=== PATIENT | male | born 1960 | race Caucasian/White ===

== ENCOUNTER 2016-06-12 08:19 | Inpatient (IN) ==
[2016-06-12] MEDS ORDERED: *HR* HYDROmorphone (PF) 1 MG/ML SYRINGE IV ONE ×2 (08:51→10:30)
--- NOTE | 2016-06-12 08:57 | Emergency Department Note ---
Disposition Clinical Impression: Multiple fractures of ribs of right side Qualifiers: Encounter type: initial encounter Fracture type: closed Qualified Code(s): S22.41XA - Multiple fractures of ribs, right side, initial encounter for closed fracture Pneumothorax, closed, traumatic Qualifiers: Encounter type: initial encounter Qualified Code(s): S27.0XXA - Traumatic pneumothorax, initial encounter Scaphoid fracture, wrist, closed Qualifiers: Encounter type: initial encounter Scaphoid bone location: unspecified portion of scaphoid Fracture alignment: nondisplaced Laterality: right Qualified Code(s) : S62.001A - Unspecified fracture of navicular [scaphoid] bone of right wrist, initial encounter for closed fracture Abrasion head Qualifiers: Encounter type: initial encounter Qualified Code(s): S00.91XA - Abrasion of unspecified part of head, initial encounter Disposition: Admitted As Inpatient Condition: Fair Referrals: Michael Trinidad MD [Primary Care Provider] - Forms: ED Satisfaction Letter Time of Disposition: 11:22 Fall HPI - General Chief Complaint: ED Fall Stated Complaint: fell off ladder Time Seen by Provider: 06/12/16 08:41 Source: patient, family Mode of arrival: private vehicle Limitations: no limitations Nursing Notes Reviewed: Yes Vital Signs Reviewed: Yes - History of Present Illness Pt Subjective Complaint: fall Onset (ago): hour(s) (A little over an hour ago) Fall From: from height (distance) (The patient was on a 4 foot step ladder and states that he was close to the top when the ladder toppled over) Fall Witnessed: yes Place Fall Occurred: home Loss of Consciousness: none Prolonged Down Time?: no Symptoms Prior to Fall: none Context: other (Step ladder toppled over while he was on it and he fell to the ground. He landed on his right side.) Location of injury: head (Right ear abrasions), chest (Right chest pain) Location of injury - extremities: Right: forearm (Wrist) Severity: severe Quality: sharp Associated symptoms (after fall): Denies: numbness, weakness, shortness of breath, abdominal pain - Related Data Home Medications Medication Instructions Recorded Confirmed Albuterol Sulfate [Albuterol 2 puff IH Q6HR PRN 06/12/16 06/12/16 Inhaler] Carvedilol 12.5 mg PO BID 06/12/16 06/12/16 Ibuprofen [Advil] 200 mg PO Q6H PRN 06/12/16 06/12/16 Allergies Allergy/AdvReac Type Severity Reaction Status Date / Time Oxycodone Allergy Hives Verified 04/10/16 08:40 All systems ED: reviewed and negative except as stated. Eyes: Denies: eye pain, vision change ENT ED: Reports: ear pain (pain to right ear abrasion/contussion) Cardiovascular: Reports: chest pain (Right chest). Denies: palpitations Respiratory: Denies: cough, dyspnea, wheezes Gastrointestinal: Denies: abdominal pain, nausea, vomiting, diarrhea Musculoskeletal: Reports: neck pain (Mild), joint swelling (Right wrist), arthralgia (Right wrist). Denies: back pain Neurological: Denies: weakness, numbness, paresthesias Fall PMH - Past Medical History Medical history: Reports: coronary artery disease, DVT (Patient had been treated with Coumadin but has been off Coumadin for about 2 years), hyperlipidemia, hypertension Surgical history: Reports: coronary bypass (CABG), pacemaker/AICD Psychiatric history: Reports: no psych history - Social History Smoking Status: Current some day smoker Alcohol use: Reports: occasionally Drug use: Reports: none Physical Exam - General Limitations: no limitations General appearance: alert, in distress (Appears uncomfortable) - Head Head exam: other (There is no scalp tenderness or deformity) - Eye Eye exam: Present: normal appearance, PERRL, EOMI - ENT ENT exam: normal oropharynx, mucous membranes moist, TM's normal bilaterally, other (The patient has an abrasion to the top of the right ear. There is no Rodriguez sign. There is no bleeding in the auditory canal. Left ear is normal.) - Neck Neck exam: Present: other (Patient has been placed in a cervical collar. There is mild tenderness diffusely to the posterior neck.) - Chest Chest inspection: Present: symmetric chest wall rise, tenderness (Patient has a lot of tenderness to palpation to the lower ribs on the right hand side, particularly along the anterior axillary line. There is no crepitus or chest wall instability appreciated.) - Respiratory Respiratory exam: Present: normal lung sounds bilaterally. Absent: respiratory distress - Cardiovascular Cardiovascular exam: Present: regular rate, normal rhythm, normal heart sounds - Abdominal Exam Abdominal exam: Present: soft, Non-Tender, normal bowel sounds. Absent: organomegaly - Extremities Exam Extremities exam: Present: other (Patient has swelling and tenderness to the right wrist. Distal neurologic and vascular examination is normal. No other extremity abnormalities are identified.) - Back Exam Back exam: Absent: tenderness - Neurological Exam Neurological exam: Present: alert, oriented X3. Absent: motor sensory deficit - Psychiatric Psychiatric exam: Present: normal affect, normal mood - Skin Skin exam: Present: warm, dry Course Course Narrative: Patient fell from standing a few feet off the ground when he step ladder toppled. He has abrasion to his right ear. There was no loss of consciousness. Mental status and neurologic examination are normal. Patient is not on blood thinners at this time. Neck does show some mild tenderness. I will CT his neck and cervical spine. Chest wall shows significant tenderness to the right side. There are no other clinical indications of intrathoracic pathology. I will CT his thorax while we have him in the scanner for his head and neck. Right wrist will be x-rayed. No other focal complaints made by patient or identified on physical exam. We will give the patient pain medications. Disposition will be based on diagnostic results and reevaluation. - Reevaluation(s) Reevaluation #1: Head and cervical spine CTs are negative. I removed the soft collar. Repeat clinical examination does not make me concerned for missed fracture. The right wrist x-ray does not reveal any obvious bony abnormality, however there is some soft tissue swelling and on clinical examination the patient has tenderness to palpation of the anatomical snuffbox and has significant tenderness on axial loading of the thumb. These are concerning for scaphoid fracture that is not being picked up on x-ray. I will put him in a thumb spica for this reason. CT of the chest is still waiting to be read by the radiologist but it is clear that there is a pneumothorax on the right hand side. I will talk to surgery about that. Time: 10:30 Reevaluation #2: Talked with the patient and family about the diagnosis. They agree to admission. Patient's O2 sat was 98% on room air. I put on 2 L of oxygen nonetheless. Rest of his vital signs are good. Pain is better with pain medicines. Time: 11:18 - Consultations Consultation #1: Dr. Dotson, Gen. surgery - I discussed the case with Dr. Dotson. He reviewed the CT scan while talking to me. He feels that the pneumothorax can be watched [email or web address] He requested admit the patient to the hospitalist service with him on consult. He recommended repeat x-ray in 12 hours. I relayed that information to the hospitalist when I spoke with them. Dr. Dotson will see the patient in consult. Time: 11:16 Consultation #2: Dr. Roberto, hospitalist - I discussed the case with the hospitalist. She has accepted the patient for admission to the hospital. Time: 11:17 Vital Signs Temperature 97.5 F L 06/12/16 08:25 Pulse Rate 82 06/12/16 08:25 Respiratory Rate 16 06/12/16 08:25 Blood Pressure 125/85 06/12/16 08:25 O2 Sat by Pulse Oximetry 97 06/12/16 08:25 Temperature 97.5 F L 06/12/16 08:25 Pulse Rate 79 06/12/16 10:30 Respiratory Rate 16 06/12/16 10:30 Blood Pressure 130/71 06/12/16 10:30 O2 Sat by Pulse Oximetry 100 06/12/16 10:30 Oxygen Delivery Oxygen Delivery Room Air Fall - Medical Records Medical records reviewed: Yes I reviewed the patient's medical records. - Lab Data Lab results reviewed: Yes I reviewed the patient's lab results. Result diagrams: 06/12/16 10:58 Lab Results 06/12/16 06/12/16 Range/Units 10:58 10:58 WBC 11.2 H (4.3-11.1) K/mcL RBC 4.86 (4.19-5.50) M/mcL Hgb 14.9 (12.9-16.9) g/dL Hct 43.2 (37.5-50.1) % MCV 88.9 (83.0-100.0) fL MCH 30.7 (28.0-33.3) pg MCHC 34.5 (31.6-35.5) g/dL RDW 13.0 (11.5-14.5) % Plt Count 162 (140-400) K/mcL MPV 10.4 (9.4-12.4) fL Immature Gran % 0.3 (0-4) % Seg Neutrophils % 87.7 % Lymphocytes % 4.3 % Monocytes % 7.0 % Eosinophils % 0.5 % Basophils % 0.2 % Neutrophils # 9.8 H (1.6-8.9) K/mcL Lymphocytes # 0.5 L (0.6-4.6) K/mcL Monocytes # 0.8 (0.0-1.3) K/mcL Eosinophils # 0.1 (0.0-0.6) K/mcL Basophils # 0.0 (0.0-0.2) K/mcL Immature Plt Fraction 8.1 H (1.1-6.1) % PT 14.8 H (9.4-12.1) Seconds INR 1.4 - Radiology Data Radiology results reviewed: Yes I reviewed the patient's radiology results.
[2016-06-12] MEDS ORDERED: Ketorolac 30 MG/ML VIAL IV ONE (10:30)
[2016-06-12 11:06] LABS: Basophils % 0.2 %; Eosinophils # 0.1 K/mcL (0.0-0.6); Eosinophils % 0.5 %; Hematocrit 43.2 % (37.5-50.1); Hemoglobin 14.9 g/dL (12.9-16.9); Immature Granulocytes % 0.3 % (0-4); Immature Platelets 8.1 % (1.1-6.1); Lymphocytes # 0.5 K/mcL (0.6-4.6); Lymphocytes % 4.3 %; Mean Corpuscular HGB Conc 34.5 g/dL (31.6-35.5); Mean Corpuscular Hemoglobin 30.7 pg (28.0-33.3); Mean Corpuscular Volume 88.9 fL (83.0-100.0); Mean Platelet Volume 10.4 fL (9.4-12.4); Monocytes # 0.8 K/mcL (0.0-1.3); Neutrophils # 9.8 K/mcL (1.6-8.9); Platelet Count 162 K/mcL (140-400); Red Blood Count 4.86 M/mcL (4.19-5.50); Segmented Neutrophils % 87.7 %
[2016-06-12 11:12] LABS: INR 1.4; Prothrombin Time 14.8 Seconds (9.4-12.1)
[2016-06-12 11:17] LABS: BUN/Creatinine Ratio 26 (6-26); Blood Urea Nitrogen 23 mg/dL (8-26); Calcium 9.4 mg/dL (8.6-10.8); Carbon Dioxide 24 mEq/L (19-29); Chloride 107 mEq/L (98-109); Glucose 103 mg/dL (70-99); Osmolality,Calculated 294 (280-300); Potassium 3.8 mEq/L (3.5-4.5); Sodium 140 mEq/L (136-145); eGFR For African Americans > 60 (> 60); eGFR For Non-African Americans > 60 (> 60)
[2016-06-12] MEDS ORDERED: Naloxone 0.4 MG/ML INJ IVP PRN (11:36)
--- NOTE | 2016-06-12 11:48 | Internal Med History&Physical ---
Date of Encounter: 06/12/16 Time of Encounter: 11:43 Assessment and Plan (1) Pneumothorax, closed, traumatic Current visit: Yes Status: Acute Had a small right-sided pneumothorax, clinically stable saturating 97% on 2 L. Secondary to fall with rib fractures. Dr. Dotson has been consulted, recommended conservative management for now. Repeat chest x-ray in 12 hours, will need pain controlled. Qualifiers: Encounter type: initial encounter Qualified Code(s): S27.0XXA - Traumatic pneumothorax, initial encounter (2) H/O mitral valve repair Current visit: Yes Status: Chronic Stable. (3) Multiple fractures of ribs of right side Current visit: Yes Status: Acute Secondary to fall, has fractures on the right side 2nd, 3rd and 5th ribs. Pain management. Qualifiers: Encounter type: initial encounter Fracture type: closed Qualified Code(s) : S22.41XA - Multiple fractures of ribs, right side, initial encounter for closed fracture (4) Scaphoid fracture, wrist, closed Current visit: Yes Status: Acute clinically appeared as scaphoid fracture right side, though x- ray does not show any fracture. thumb spica cast was placed at ED, will consult ortho for f.u. Qualifiers: Encounter type: initial encounter Scaphoid bone location: unspecified portion of scaphoid Fracture alignment: nondisplaced Laterality: right Qualified Code(s): S62.001A - Unspecified fracture of navicular [scaphoid] bone of right wrist, initial encounter for closed fracture (5) Fall Current visit: Yes Status: Acute fell from the ladder today, mechanical fall. Qualifiers: Encounter type: initial encounter Qualified Code(s): W19.XXXA - Unspecified fall, initial encounter (6) Sick sinus syndrome Current visit: Yes Status: Acute History of sick sinus syndrome and has a pacemaker. Currently stable. Internal Medicine - H&P: HPI Chief complaint: fall Admitted From: Home Plans for Post Hospital Care: Home History of present illness: Mr. Perkins is a 56 year old male with hx SSS s/p pacemaker, MV repair 2010, COPD and cephalic vein thrombosis finished AC presented to ED after fall. He says that he was on N and fragment this morning. He denies any preceding chest pain or shortness of breath confusion or dizziness prior to the event. He reports he did not lose consciousness, no head injury after the fall. He sustained abrasion injury on the right ear, pain on the right hand and right side of the chest. He denies any nausea or vomiting. In the ED, he was noted to have right-sided small pneumothorax, Dr. Dotson was consulted and recommended to be treated conservatively. He does not appear to be in any acute respiratory distress, complains of right- sided chest pain where he has tarry fractures in the pneumothorax. However he is seen to be satting 97% on 2 L. HE gives history of mitral valve repair in 2010 and has no symptom from that as he says. He says he was on Coumadin for 1 year for cephalic vein thrombosis, his PCP later told him that he no longer needs it. HE has been applied on thumb spica cast for suspected rt. scaphoid fracture. Past Med Surg Social Fam HX - Past Medical History Medical history: coronary artery disease, DVT (Patient had been treated with Coumadin but has been off Coumadin for about 2 years), hyperlipidemia, hypertension Psychiatric history: no psych history - Past Surgical History Surgical History: coronary bypass (CABG), pacemaker/AICD - Social History Smoking Status: Current some day smoker Smokeless Tobacco Status: No Alcohol use: occasionally Drug use: none - Family History Mother Living Status: Hx Family Genitourinary Disorders: Yes (kidney diease) Hx Family Endocrine Disorder: Yes (dm) Internal Medicine - H&P: Meds Albuterol Sulfate [Albuterol Inhaler] 2 puff IH Q6HR PRN 06/12/16 [History] Carvedilol 12.5 mg PO BID 06/12/16 [History] Ibuprofen [Advil] 200 mg PO Q6H PRN 06/12/16 [History] Allergies Oxycodone Allergy (Verified 04/10/16 08:40) Hives All Systems PM: A 10-system review of systems was performed and is negative for pertinent findings except as documented above in the HPI. - Constitutional Constitutional: no chills, no fever(s), no night sweats - EENT Eyes: no change in vision, no discharge, no pain, no photophobia Ears: no ear discharge, no ear pain, no tinnitus Nose, mouth and throat: no dysphagia, no nasal discharge, no neck pain, no sore throat - Cardiovascular Cardiovascular ROS IM: no chest pain, no diaphoresis, no dyspnea, no lightheadedness, no palpitations, no syncope - Respiratory Respiratory: pain on inspiration - Gastrointestinal Gastrointestinal: no abdominal pain, no diarrhea, no hematemesis, no hematochezia, no melena, no nausea, no vomiting - Neurological Neurological ROS: no confusion, no convulsions, no focal weakness, no numbness, no tingling, no tremor(s) - Constitutional Vitals: Temp Pulse Resp BP Pulse Ox 97.5 F L 79 16 130/71 100 06/12/16 08:25 06/12/16 10:30 06/12/16 10:30 06/12/16 10:30 06/12/16 10:30 General appearance: Present: mild distress, A&O X 3 Exam: - Head Head exam: other (There is no scalp tenderness or deformity) - Eye Eye exam: Present: normal appearance, PERRL, EOMI - ENT ENT exam: normal oropharynx, mucous membranes moist, The patient has an abrasion to the top of the right ear. There is no Rodriguez sign. There is no bleeding in the auditory canal. Left ear is normal. - Neck Neck exam: There is mild tenderness diffusely to the posterior neck - Respiratory Respiratory exam: Present: mildly decreased breath sounds in the right side . Absent: respiratory distress - Cardiovascular Cardiovascular exam: Present: regular rate, normal rhythm, normal heart sounds - Abdominal Exam Abdominal exam: Present: soft, Non-Tender, normal bowel sounds. Absent: organomegaly - Extremities Exam Extremities exam: Present: other (Patient has swelling and tenderness to the right wrist. Distal neurologic and vascular examination is normal. No other extremity abnormalities are identified.) has a thumb spica cast on the right thumb. - Back Exam Back exam: Absent: tenderness - Neurological Exam Neurological exam: Present: alert, oriented X3. Absent: motor sensory deficit - Psychiatric Psychiatric exam: Present: normal affect, normal mood - Skin Skin exam: Present: warm, dry Internal Med - H&P Results - Labs CBC & Chem 7: 06/12/16 10:58 06/12/16 10:58
[2016-06-12] MEDS: *HR* HYDROcodone/Acet 5/325 mg TABLET PO PRN ×2 (13:13→19:57)
--- NOTE | 2016-06-12 15:23 | General Surgery Consult Note ---
Date of Encounter: 06/13/16 Time of Encounter: 15:20 Assessment and Plan (1) Pneumothorax, closed, traumatic Current Visit: Yes Status: Acute Recommend portable CXR in order to obtain a baseline of the lung status in order to compare with a repeat xray in several hours (comparing a CXR to a CT of the chest will show a considerable difference due to the supine position with a CT and a "sitting up" position with a CXR). Will follow with you. Qualifiers: Encounter type: initial encounter Qualified Code(s): S27.0XXA - Traumatic pneumothorax, initial encounter History of Present Illness Consult date: 06/12/16 Reason for consult: other (right pneumothorax) Requesting physician: Sal Mariano History of present illness: 56 year old male with a past medical history significant for presents to the ER after sustaining a fall from a 4 step ladder. He denies any shortness of breath but does admit to right sided chest pain, particularly with movement. He denies any LOC and denies any dizziness. No nausea or vomiting. Past Med Surg Social Fam HX - Past Medical History Medical history: coronary artery disease, DVT, hyperlipidemia, hypertension Psychiatric history: no psych history - Past Surgical History Surgical History: coronary bypass (CABG), pacemaker/AICD - Social History Smoking Status: Current some day smoker Smokeless Tobacco Status: No Alcohol use: occasionally Drug use: none - Family History Mother Living Status: Hx Family Genitourinary Disorders: Yes (kidney diease) Hx Family Endocrine Disorder: Yes (dm) Medications and Allergies Albuterol Sulfate [Albuterol Inhaler] 2 puff IH Q6HR PRN 06/12/16 [History] Carvedilol 12.5 mg PO BID 06/12/16 [History] Ibuprofen [Advil] 200 mg PO Q6H PRN 06/12/16 [History] Allergies Oxycodone Allergy (Verified 04/10/16 08:40) Hives Review of Systems All systems PM: reviewed and no additional remarkable complaints except as stated All systems PM: A 10-system review of systems was performed and is negative for pertinent findings except as documented above in the HPI. General Surgery Exam Initial Vital Signs Temp Pulse Resp BP Pulse Ox 97.5 F L 82 16 125/85 97 06/12/16 08:25 06/12/16 08:25 06/12/16 08:25 06/12/16 08:25 06/12/16 08:25 - General physical appearance well developed, well nourished, no distress - Eyes normal ocular movement - Respiratory other (Noted decreased breath sounds in the right upper lung field. Normal effort.) - Cardiovascular Cardiovascular exam: Present: RRR, no murmurs/rubs/gallops - Abdomen Abdomen general surgery: Present: bowel sounds present, soft, non tender - Musculoskeletal Present: other (No clubbing, cyanosis, or edema.) - Psychiatric Psychiatric general surgery: Present: A&Ox3 Exam Initial Vital Signs Temp Pulse Resp BP Pulse Ox 97.5 F L 82 16 125/85 97 06/12/16 08:25 06/12/16 08:25 06/12/16 08:25 06/12/16 08:25 06/12/16 08:25 Results - Labs 06/13/16 04:23 06/13/16 04:23 Abnormal lab results WBC 11.2 K/mcL (4.3-11.1) H 06/12/16 10:58 Neutrophils # 9.8 K/mcL (1.6-8.9) H 06/12/16 10:58 Lymphocytes # 0.5 K/mcL (0.6-4.6) L 06/12/16 10:58 Immature Plt Fraction 8.1 % (1.1-6.1) H 06/12/16 10:58 PT 14.8 Seconds (9.4-12.1) H 06/12/16 10:58 Glucose 103 mg/dL (70-99) H 06/12/16 10:58 All other labs normal. - Imaging CT scan - chest: report reviewed, image reviewed (Noted small PTX. No contusion noted.) Consult Discharge Plan - Plan Referrals: Michael Trinidad MD [Primary Care Provider] -
[2016-06-12] MEDS: *HR* Morphine 2 MG/ML SYRINGE IVP PRN ×2 (17:19→22:03)
[2016-06-12] MEDS: *HR* Heparin 5,000 UNIT/ML VIAL SQ SCH (17:30)
--- NOTE | 2016-06-12 17:30 | Event Note ---
Date of Encounter: 06/12/16 Time of Encounter: 17:28 Of note: Chest x-ray revealed a medium to large size right-sided pneumothorax that appeared even bigger than suggested by the CT scan. Patient is to place a centesis catheter. After properly to define the patient the patient's right anterior chest was prepped and draped in normal fashion. 1% lidocaine was used to anesthetize the epidermal and dermal layers between the second and third ribs in the midclavicular space. This was followed by making an incision with an 11 blade scalpel and advancement via the Seldinger technique of an 8-Kazakh catheter until air was suctioned in the syringe. The catheter was then advanced and secured in place with a 3-0 silk suture. The tubing was then connected to a Pleur-evac which allow for suctioning of the pneumothorax. Tegaderm was placed over the entry site and the chest x-ray is pending for placement.
--- NOTE | 2016-06-12 21:46 | Event Note ---
Date of Encounter: 06/12/16 Time of Encounter: 21:46 repeat CXR showed worsening pneumothorax, a chest tube has been placed by surgery.
[2016-06-13] MEDS: *HR* HYDROcodone/Acet 5/325 mg TABLET PO PRN ×4 (00:24→22:14)
[2016-06-13] MEDS: *HR* Heparin 5,000 UNIT/ML VIAL SQ SCH ×2 (04:27→16:50)
[2016-06-13 04:53] LABS: Basophils % 0.3 %; Eosinophils # 0.2 K/mcL (0.0-0.6); Eosinophils % 2.8 %; Hematocrit 42.1 % (37.5-50.1); Immature Granulocytes % 0.3 % (0-4); Lymphocytes % 16.3 %; Mean Corpuscular HGB Conc 33.3 g/dL (31.6-35.5); Mean Corpuscular Hemoglobin 30.2 pg (28.0-33.3); Mean Corpuscular Volume 90.7 fL (83.0-100.0); Mean Platelet Volume 11.4 fL (9.4-12.4); Monocytes # 0.7 K/mcL (0.0-1.3); Monocytes % 11.3 %; Neutrophils # 4.1 K/mcL (1.6-8.9); Platelet Count 151 K/mcL (140-400); Red Blood Count 4.64 M/mcL (4.19-5.50); Red Cell Distribution Width 13.2 % (11.5-14.5)
[2016-06-13 05:22] LABS: BUN/Creatinine Ratio 20 (6-26); Blood Urea Nitrogen 20 mg/dL (8-26); Calcium 9.1 mg/dL (8.6-10.8); Carbon Dioxide 25 mEq/L (19-29); Chloride 106 mEq/L (98-109); Chol/HDL Ratio 3.8 (0-4.9); Cholesterol 139 mg/dL (< 200); Glucose 94 mg/dL (70-99); HDL Cholesterol 37 mg/dL (40-59); LDL Cholesterol,Calculated 88 mg/dL (0-99); Osmolality,Calculated 290 (280-300); Potassium 3.8 mEq/L (3.5-4.5); Sodium 139 mEq/L (136-145); Triglycerides 72 mg/dL (< 150); eGFR For African Americans > 60 (> 60); eGFR For Non-African Americans > 60 (> 60)
--- NOTE | 2016-06-13 07:47 | General Surgery Progress Note ---
Date of Encounter: 06/13/16 Time of Encounter: 07:45 - Assessment and Plan (1) Pneumothorax, closed, traumatic Current Visit: Yes Status: Acute CXR showe decreasing pneumothorax. Will clamp CT and repeat CXR in several hours. If stable, then will remove CT. Qualifiers: Encounter type: initial encounter Qualified Code(s): S27.0XXA - Traumatic pneumothorax, initial encounter Subjective Patient reports: no new complaints, other (Still has some right sided chest pain. CXR performed this am.) Objective Vital Signs - Last 8 Hours Temp Pulse Resp BP Pulse Ox 06/13/16 07:00 98.2 F 65 16 105/68 94 06/13/16 04:00 98.5 F 72 16 111/75 93 06/13/16 00:20 98.2 F 77 18 117/75 95 Intake and Output 06/12/16 06/12/16 06/13/16 15:59 23:59 07:59 Intake Total 150 / 150 640 / 640 120 / 120 Output Total 275 / 275 0 / 0 Balance 150 / 150 365 / 365 120 / 120 Intake: Oral 150 / 150 640 / 640 120 / 120 Output: Urine 275 / 275 Chest Tube Drainage 0 / 0 0 / 0 Right Anterior Chest 0 / 0 0 / 0 Other: Meal Lunch Dinner Percent of Meal Consumed 50% # Voids 2 Blood Glucose* 114 114 - General physical appearance well developed, well nourished, no distress - Respiratory normal expansion, normal respiratory effort, other (No evidence of air leak in pleurovac chamber with coughing.) - Labs 06/13/16 04:23 06/13/16 04:23 Diabetes panel 06/13/16 Range/Units 04:23 Sodium 139 (136-145) mEq/L Potassium 3.8 (3.5-4.5) mEq/L Chloride 106 (98-109) mEq/L Carbon Dioxide 25 (19-29) mEq/L BUN 20 (8-26) mg/dL Creatinine 1.00 (0.72-1.25) mg/dL Glucose 94 (70-99) mg/dL Calcium 9.1 (8.6-10.8) mg/dL Triglycerides 72 (< 150) mg/dL HDL Cholesterol 37 L (40-59) mg/dL Calcium panel 06/13/16 Range/Units 04:23 Calcium 9.1 (8.6-10.8) mg/dL Pituitary panel 06/13/16 Range/Units 04:23 Sodium 139 (136-145) mEq/L Potassium 3.8 (3.5-4.5) mEq/L Chloride 106 (98-109) mEq/L Carbon Dioxide 25 (19-29) mEq/L BUN 20 (8-26) mg/dL Creatinine 1.00 (0.72-1.25) mg/dL Glucose 94 (70-99) mg/dL Calcium 9.1 (8.6-10.8) mg/dL Adrenal panel 06/13/16 Range/Units 04:23 Sodium 139 (136-145) mEq/L Potassium 3.8 (3.5-4.5) mEq/L Chloride 106 (98-109) mEq/L Carbon Dioxide 25 (19-29) mEq/L BUN 20 (8-26) mg/dL Creatinine 1.00 (0.72-1.25) mg/dL Glucose 94 (70-99) mg/dL Calcium 9.1 (8.6-10.8) mg/dL Consult Discharge Plan - Plan Referrals: Michael Trinidad MD [Primary Care Provider] -
[2016-06-13] MEDS ORDERED: Loratadine 10 MG TABLET PO PRN (10:38)
[2016-06-13] MEDS: *HR* Morphine 2 MG/ML SYRINGE IVP PRN ×3 (11:10→20:53)
[2016-06-13] MEDS ORDERED: Ipratropium/Albuterol Neb 3 ML IH PRN (11:58)
--- NOTE | 2016-06-13 13:58 | Internal Med Progress Note ---
Date of Encounter: 06/13/16 Time of Encounter: 09:50 - Assessment and plan (1) Acute respiratory failure with hypoxia Current Visit: Yes Status: Acute Assessment and plan: Due to severe right-sided chest wall pain. Chest x-ray shows improvement in the pneumothorax. There is also possible right-sided upper lobe infiltrate. However patient does not exhibit any signs of pneumonia. Will avoid antibiotics for now. No fever and no leukocytosis. If patient develops any fever or leukocytosis and start him on IV antibiotics. High risk for complications. On O2 supplementation. Also on bronchodilator nebs as needed. (2) Pneumothorax, closed, traumatic Current Visit: Yes Status: Acute Assessment and plan: Improved after chest tube placement. Surgery following. Plan for removal of chest tube later today. Qualifiers: Encounter type: initial encounter Qualified Code(s): S27.0XXA - Traumatic pneumothorax, initial encounter (3) Multiple fractures of ribs of right side Current Visit: Yes Status: Acute Assessment and plan: Pain control. Patient placed on morphine IV as needed and Stuart as needed. Qualifiers: Encounter type: initial encounter Fracture type: closed Qualified Code(s) : S22.41XA - Multiple fractures of ribs, right side, initial encounter for closed fracture (4) Scaphoid fracture, wrist, closed Current Visit: Yes Status: Acute Assessment and plan: Thumb spica cast in place. Orthopedics consulted for evaluation. Qualifiers: Encounter type: initial encounter Scaphoid bone location: unspecified portion of scaphoid Fracture alignment: nondisplaced Laterality: right Qualified Code(s): S62.001A - Unspecified fracture of navicular [scaphoid] bone of right wrist, initial encounter for closed fracture (5) H/O mitral valve repair Current Visit: Yes Status: Chronic Assessment and plan: No acute issues at this time. (6) Fall Current Visit: Yes Status: Acute Assessment and plan: Mechanical fall. No further evaluation at this time. Qualifiers: Encounter type: initial encounter Qualified Code(s): W19.XXXA - Unspecified fall, initial encounter (7) Sick sinus syndrome Current Visit: Yes Status: Chronic Assessment and plan: With pacemaker. - Subjective Interval history: Patient having severe chest pain on the right side with right-sided rib fractures and chest tube placement. Worsens with deep breaths and as such patient has been having rapid shallow breaths. He has developed hypoxia and has been saturating in the low 80s on room air and is now on nasal cannula. He does complain of shortness of breath. - Constitutional Vitals: Temp Pulse Resp BP Pulse Ox 98.2 F 77 16 118/76 91 06/13/16 10:26 06/13/16 10:26 06/13/16 12:03 06/13/16 10:26 06/13/16 12:03 General appearance: Present: cooperative, A&O X 3, severe distress, answers questions appropriately Exam: Severe distress - Neck Neck exam general surgery: Present: supple, trachea midline. Absent: lymphadenopathy - Respiratory Respiratory exam: Present: accessory muscle use, chest wall tenderness, rhonchi , tachypnea. Absent: rales, wheezes Additional comments: Rapid shallow breaths due to severe right-sided chest wall pain. - Cardiovascular Cardiovascular exam: Present: RRR, +S1, +S2. Absent: diastolic murmur, gallop, rubs, systolic murmur - GI/Abdominal GI/Abdominal exam: Present: normal bowel sounds, soft, no peritoneal signs. Absent: distended, tenderness - Extremities Exam Extremities exam: Present: warm, radial pulses palpable and symetrical. Absent : calf tenderness, cyanotic, pedal edema Additional comments: Right-sided thumb spica cast placed - Neurological Exam Neurological exam: Present: alert, CN II-XII intact, oriented X3, no focal deficits. Absent: facial droop, speech deficit - Psychiatric Psychiatric exam: Present: anxious - Skin Skin exam: Present: dry, intact Internal Medicine: Result - Labs CBC & Chem 7: 06/13/16 04:23 06/13/16 04:23 Labs: Short CBC 06/13/16 Range/Units 04:23 WBC 6.0 (4.3-11.1) K/mcL Hgb 14.0 (12.9-16.9) g/dL Hct 42.1 (37.5-50.1) % Plt Count 151 (140-400) K/mcL Neutrophils # 4.1 (1.6-8.9) K/mcL BMP 06/13/16 04:23 Sodium 139 Potassium 3.8 Chloride 106 Carbon Dioxide 25 BUN 20 Creatinine 1.00 Glucose 94 Calcium 9.1 - ABG Interpretation ABG results: PT/INR, D-dimer PT 14.8 Seconds (9.4-12.1) H 06/12/16 10:58 - Impressions Impressions Chest X-Ray 06/12/16 15:14 IMPRESSION: Interval worsening of right pneumothorax which now measures up to 5.8 cm from the right apex. Critical results were called by Dr. Jane Mcgarry MD to Dr. Walker on 06/12/2016 at 16:02. D/ / 06/12/2016 16:26:02 Jane Mcgarry MD / edilson Interpreting Provider: Jane Mcgarry MD Chest X-Ray 06/12/16 17:25 IMPRESSION: 1. Right chest tube placement with decrease in size of the right pneumothorax. 2. Otherwise, stable chest x-ray. D/ / Javier Coker MD / Javier Coker MD Interpreting Provider: Javier Coker MD Chest X-Ray 06/13/16 03:56 IMPRESSION: Right chest tube is in stable position. Small right apical pneumothorax is decreased in the interval. Mild left basilar atelectasis. D/ / Leobardo Engle MD / Leobardo Engle MD Interpreting Provider: Leobardo Engle MD Chest X-Ray 06/13/16 11:00 IMPRESSION: Stable right apical pneumothorax following clamping of chest tube. Persistent infiltrate in the axillary portion of the right upper lobe. D/ / Maxime Hawkins MD / Maxime Hawkins MD Interpreting Provider: Maxime Hawkins MD Consult Discharge Plan - Plan Referrals: Michael Trinidad MD [Primary Care Provider] - - Attending Attestation This document has been at least partially created by [employer] recognition technology by Dr. Ascencio. Errors in grammar, wording or other phrases may exist. If errors are found after the documentation is signed, they will be addressed individually in the addendum section of this document when appropriate.
--- NOTE | 2016-06-13 15:02 | General Surgery Progress Note ---
Date of Encounter: 06/13/16 Time of Encounter: 15:00 - Assessment and Plan (1) Pneumothorax, closed, traumatic Current Visit: Yes Status: Acute Chest tube removal Repeat CXR in 4 hours and in am Duonebs every 6 hours scheduled IS every 1 hour while awake Qualifiers: Encounter type: initial encounter Qualified Code(s): S27.0XXA - Traumatic pneumothorax, initial encounter Subjective Patient reports: no new complaints, still having pain, tolerating a regular diet , voiding w/o difficulty, shortness of breath (improved), afebrile Objective Vital Signs - Last 8 Hours Temp Pulse Resp BP Pulse Ox 06/13/16 12:03 16 91 06/13/16 10:26 98.2 F 77 16 118/76 90 Intake and Output 06/12/16 06/13/16 06/13/16 23:59 07:59 15:59 Intake Total 640 / 640 120 / 120 Output Total 275 / 275 0 / 0 350 / 350 Balance 365 / 365 120 / 120 -350 / -350 Intake: Oral 640 / 640 120 / 120 Output: Urine 275 / 275 350 / 350 Chest Tube Drainage 0 / 0 0 / 0 0 / 0 Right Anterior Chest 0 / 0 0 / 0 0 / 0 Other: Meal Dinner Blood Glucose* 114 114 114 - General physical appearance well developed, no distress - Eyes normal ocular movement - ENT normal mucosa, atraumatic, normocephalic - Neck Neck exam: trachea midline - Respiratory clear to auscultation, other (diminished bibasilar bases; Ct to water seal) - Cardiovascular Cardiovascular exam: Present: RRR - Abdomen Abdomen: Present: bowel sounds present, soft, non tender - Neurologic CN 2-12 grossly intact - Psychiatric oriented to time, oriented to person, oriented to place, speech is normal, memory intact - Labs 06/13/16 04:23 06/13/16 04:23 Diabetes panel 06/13/16 Range/Units 04:23 Sodium 139 (136-145) mEq/L Potassium 3.8 (3.5-4.5) mEq/L Chloride 106 (98-109) mEq/L Carbon Dioxide 25 (19-29) mEq/L BUN 20 (8-26) mg/dL Creatinine 1.00 (0.72-1.25) mg/dL Glucose 94 (70-99) mg/dL Calcium 9.1 (8.6-10.8) mg/dL Triglycerides 72 (< 150) mg/dL HDL Cholesterol 37 L (40-59) mg/dL Calcium panel 06/13/16 Range/Units 04:23 Calcium 9.1 (8.6-10.8) mg/dL Pituitary panel 06/13/16 Range/Units 04:23 Sodium 139 (136-145) mEq/L Potassium 3.8 (3.5-4.5) mEq/L Chloride 106 (98-109) mEq/L Carbon Dioxide 25 (19-29) mEq/L BUN 20 (8-26) mg/dL Creatinine 1.00 (0.72-1.25) mg/dL Glucose 94 (70-99) mg/dL Calcium 9.1 (8.6-10.8) mg/dL Adrenal panel 06/13/16 Range/Units 04:23 Sodium 139 (136-145) mEq/L Potassium 3.8 (3.5-4.5) mEq/L Chloride 106 (98-109) mEq/L Carbon Dioxide 25 (19-29) mEq/L BUN 20 (8-26) mg/dL Creatinine 1.00 (0.72-1.25) mg/dL Glucose 94 (70-99) mg/dL Calcium 9.1 (8.6-10.8) mg/dL - Imaging Chest x-ray: report reviewed Additional Studies: Cervical Spine CT 06/12/16 08:50 IMPRESSION: No acute abnormality of the cervical spine. Right pneumothorax. D/ / Jocy Bailey Cha, MD / Jocy Bailey Cha, MD Interpreting Provider: Jocy Bailey Cha, MD Head CT 06/12/16 08:50 IMPRESSION: 1. No acute intracranial abnormality. 2. 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 3. Paranasal sinusitis, as detailed above. D/ / Hung Saavedra MD / Hung Saavedra MD Interpreting Provider: Hung Saavedra MD Chest CT 06/12/16 08:51 IMPRESSION: 1. Small right pneumothorax secondary to fractures of the right 2nd, 3rd and 5th ribs. 2. Subcutaneous air in the right lateral chest wall also a result of this injury. 3. No other significant findings in the chest. Critical results were called by Dr. Jamie Bravo MD to Sal Mariano on 06/12/2016 at 10:40. D/ / Jamie Bravo MD / Jamie Bravo MD Interpreting Provider: Jamie Bravo MD Wrist X-Ray 06/12/16 08:51 IMPRESSION: No acute osseous abnormality demonstrated. D/ / Rojas Dupree MD / Rojas Dupree MD Interpreting Provider: Rojas Dupree MD Chest X-Ray 06/13/16 14:25 IMPRESSION: 1. Stable small right apical pneumothorax with small bore right-sided chest tube again noted. 2. New small left pleural effusion with overlying atelectasis/infiltrate. 3. Improved aeration of the right upper lobe. D/ / Hung Morales MD / Hung Morales MD Interpreting Provider: Hung Morales MD Consult Discharge Plan - Plan Referrals: Michael Trinidad MD [Primary Care Provider] - - Attending Attestation I examined this patient and my medical decision-making was reviewed with the FRETTED INSTRUMENT INSPECTOR/PA/Advanced Practice Nurse/Resident Physician. I agree with the documented findings, disposition and treatment plan as described except to the extent set forth below.
[2016-06-13] MEDS: Ipratropium/Albuterol Neb 3 ML IH SCH ×2 (15:22→21:01)
--- NOTE | 2016-06-13 16:02 | Orthopedic Consult Note ---
Date of Encounter: 06/13/16 Time of Encounter: 16:01 Assessment and Plan (1) Scaphoid fracture, wrist, closed Current Visit: Yes Status: Acute Patient has non-displaced scaphoid fracture to right wrist. Will repeat XRAYS with scaphoid views. Will remove splint tomorrow and place in thumb spica cast. ICE, elevate extremity. Limit wrist and thumb motion secondary to fracture. Encourage finger motion. Will continue with non-operative management. f/up with in 1 week in the [facility] office. Qualifiers: Encounter type: initial encounter Scaphoid bone location: unspecified portion of scaphoid Fracture alignment: nondisplaced Laterality: right Qualified Code(s): S62.001A - Unspecified fracture of navicular [scaphoid] bone of right wrist, initial encounter for closed fracture (2) Multiple fractures of ribs of right side Current Visit: Yes Status: Acute Qualifiers: Encounter type: initial encounter Fracture type: closed Qualified Code(s) : S22.41XA - Multiple fractures of ribs, right side, initial encounter for closed fracture (3) Pneumothorax, closed, traumatic Current Visit: Yes Status: Acute Qualifiers: Encounter type: initial encounter Qualified Code(s): S27.0XXA - Traumatic pneumothorax, initial encounter (4) Fall Current Visit: Yes Status: Acute Qualifiers: Encounter type: initial encounter Qualified Code(s): W19.XXXA - Unspecified fall, initial encounter History of Present Illness Chief complaint: Fall from ladder HPI: Mr. Perkins is a 56 year old male, lethargic in bed, pain controlled. Sustained a right nondisplaced scaphoid fracture from the fall. He is in a thumb spica splint currently. XRAYS reviewed. Plan to repeat xrays in scaphoid view. Denies previous trauma or injury. Denies N/T Past Med Surg Social Fam HX - Past Medical History Medical history: coronary artery disease, DVT, hyperlipidemia, hypertension Psychiatric history: no psych history - Past Surgical History Surgical History: coronary bypass (CABG), pacemaker/AICD - Social History Smoking Status: Current some day smoker Smokeless Tobacco Status: No Alcohol use: occasionally Drug use: none - Family History Mother Living Status: Hx Family Genitourinary Disorders: Yes (kidney diease) Hx Family Endocrine Disorder: Yes (dm) Medications and Allergies Albuterol Sulfate [Albuterol Inhaler] 2 puff IH Q6HR PRN 06/12/16 [History] Carvedilol 12.5 mg PO BID 06/12/16 [History] Ibuprofen [Advil] 200 mg PO Q6H PRN 06/12/16 [History] Allergies Oxycodone Allergy (Verified 04/10/16 08:40) Hives All Systems Reviewed: A 10-system review of systems was performed and is negative for pertinent findings except as documented above in the HPI. Physical Exam - Constitutional Vitals: Temp Pulse Resp BP Pulse Ox 98.2 F 77 16 118/76 91 06/13/16 10:26 06/13/16 10:26 06/13/16 12:03 06/13/16 10:26 06/13/16 12:03 - Wrist & Hand right Location of pain: other (along snuff box, and dorsally along scaphoid tubercle) Wrist pain modifiers: with motion Tenderness with palpation: other (along snuff box, and dorsally along scaphoid tubercle) ROM: wrist flexion: abnormal ROM: wrist extension: abnormal ROM: wrist radial deviation: abnormal ROM: wrist ulnar deviation: abnormal ROM: thumb MP joint: abnormal ROM: thumb IP joint: abnormal Strength: fitting room attendant: Weak Results - Labs Result Diagrams: 06/13/16 04:23 06/13/16 04:23 Labs: Abnormal lab results Immature Plt Fraction 8.1 % (1.1-6.1) H 06/12/16 10:58 PT 14.8 Seconds (9.4-12.1) H 06/12/16 10:58 POC Glucose 114 (58-89) H 06/13/16 06:00 HDL Cholesterol 37 mg/dL (40-59) L 06/13/16 04:23 All other labs normal. - Diagnostic results Wrist/Hand x-ray: report reviewed, image reviewed Consult Discharge Plan - Plan Referrals: Michael Trinidad MD [Primary Care Provider] -
[2016-06-13] MEDS ORDERED: Acetaminophen 325 MG TABLET PO PRN (17:19)
[2016-06-13 17:48] LABS: ABG Base Excess 1.7 mEq/L (-2.0 to 3.0); ABG HCO3 25.8 mEQ/L (21-27); ABG Oxygen Saturation 87 % (95-98); ABG PCO2 38 mmHg (35-45); ABG PH 7.44 pH Units (7.32-7.45); ABG PO2 51 mmHg (85-104)
[2016-06-13 17:51] LABS: Blood Gas FiO2 65 %
[2016-06-13] MEDS ORDERED: methylPREDNISolone 125 MG/2 ML VIAL IVP ONE (18:07)
[2016-06-13] MEDS: Levofloxacin 750 MG/150 ML 750 MG/150 ML BAG IVPB SCH (18:46)
[2016-06-13] MEDS: MetroNIDAZOLE 500 MG/100 ML 500 MG/100 ML BAG IVPB SCH (19:34)
[2016-06-14] MEDS: *HR* Morphine 2 MG/ML SYRINGE IVP PRN ×6 (00:53→22:16)
[2016-06-14] MEDS: MetroNIDAZOLE 500 MG/100 ML 500 MG/100 ML BAG IVPB SCH ×3 (03:36→18:03)
[2016-06-14] MEDS: *HR* HYDROcodone/Acet 5/325 mg TABLET PO PRN (03:37)
[2016-06-14] MEDS: Ipratropium/Albuterol Neb 3 ML IH SCH ×4 (03:46→22:09)
[2016-06-14 05:04] LABS: Hematocrit 44.4 % (37.5-50.1); Hemoglobin 14.7 g/dL (12.9-16.9); Mean Corpuscular HGB Conc 33.1 g/dL (31.6-35.5); Mean Corpuscular Hemoglobin 29.9 pg (28.0-33.3); Mean Corpuscular Volume 90.2 fL (83.0-100.0); Mean Platelet Volume 11.5 fL (9.4-12.4); Platelet Count 151 K/mcL (140-400); Red Blood Count 4.92 M/mcL (4.19-5.50); Red Cell Distribution Width 13.2 % (11.5-14.5)
[2016-06-14 05:15] LABS: BUN/Creatinine Ratio 18 (6-26); Blood Urea Nitrogen 18 mg/dL (8-26); Calcium 9.4 mg/dL (8.6-10.8); Carbon Dioxide 23 mEq/L (19-29); Chloride 102 mEq/L (98-109); Glucose 205 mg/dL (70-99); Osmolality,Calculated 292 (280-300); Potassium 3.7 mEq/L (3.5-4.5); Sodium 137 mEq/L (136-145); eGFR For African Americans > 60 (> 60); eGFR For Non-African Americans > 60 (> 60)
[2016-06-14 06:07] LABS: Lymphocytes # 0.4 K/mcL (0.6-4.6); Monocytes # 0.8 K/mcL (0.0-1.3); Neutrophils # 18.1 K/mcL (1.6-8.9); Platelet Estimate Normal (Normal)
[2016-06-14] MEDS: *HR* Heparin 5,000 UNIT/ML VIAL SQ SCH ×2 (06:45→17:55)
[2016-06-14] MEDS: Levofloxacin 750 MG/150 ML 750 MG/150 ML BAG IVPB SCH (08:53)
[2016-06-14] MEDS: *HR* HYDROcodone/Acet 7.5/325 mg TABLET PO PRN ×3 (10:10→23:42)
--- NOTE | 2016-06-14 12:19 | General Surgery Progress Note ---
Date of Encounter: 06/14/16 Time of Encounter: 12:00 - Assessment and Plan (1) Pneumothorax, closed, traumatic Current Visit: Yes Status: Acute Chest tube removal Repeat CXR reviewed and is stable Duonebs every 6 hours scheduled IS every 1 hour while awake Surgery will sign off at this time. Thank you for allowing us to participate in the care of this patient. Please call with any further questions/concerns. Qualifiers: Encounter type: initial encounter Qualified Code(s): S27.0XXA - Traumatic pneumothorax, initial encounter Subjective Patient reports: no new complaints, feels better, still having pain, pain is less, tolerating a regular diet, shortness of breath (improved), fever (Tmax 101 ) Objective Vital Signs - Last 8 Hours Temp Pulse Resp BP Pulse Ox 06/14/16 11:07 97.7 F 70 18 106/73 95 06/14/16 10:13 18 96 06/14/16 08:45 97.7 F 62 18 106/71 96 06/14/16 07:27 97.7 F 62 18 106/71 96 Intake and Output 06/13/16 06/14/16 06/14/16 23:59 07:59 15:59 Intake Total 250 / 250 100 / 100 360 / 360 Output Total 250 / 250 Balance 0 / 0 100 / 100 360 / 360 Intake: IV Fluids 250 / 250 100 / 100 Levaquin 750mg/150 mL 750 150 / 150 mg In 150 ml @ 100 mls/ hr IVPB DAILY [facility] Rx#: [id number] Flagyl 500 MG/100 ML 500 100 / 100 100 / 100 mg In 100 ml @ 100 mls/hr IVPB Q8H [facility] Rx#: [id number] Oral 0 / 0 360 / 360 Output: Urine 250 / 250 Other: Meal Dinner Breakfast Percent of Meal Consumed 10% 100% Blood Glucose* 122 - General physical appearance well developed, well nourished, no distress - Eyes normal ocular movement - ENT normal mucosa, atraumatic, normocephalic - Neck Neck exam: trachea midline - Respiratory normal respiratory effort, other (diminished bibasilar bases; chest tube site clean, dry and intact) rales: left (minimal) - Abdomen Abdomen: Present: bowel sounds present, soft, non tender - Incision Incision: Present: clean and dry, intact - Neurologic CN 2-12 grossly intact - Psychiatric oriented to time, oriented to person, oriented to place, speech is normal, memory intact - Labs 06/14/16 04:23 06/14/16 04:23 Diabetes panel 06/14/16 Range/Units 04:23 Sodium 137 (136-145) mEq/L Potassium 3.7 (3.5-4.5) mEq/L Chloride 102 (98-109) mEq/L Carbon Dioxide 23 (19-29) mEq/L BUN 18 (8-26) mg/dL Creatinine 1.00 (0.72-1.25) mg/dL Glucose 205 H (70-99) mg/dL Calcium 9.4 (8.6-10.8) mg/dL Calcium panel 06/14/16 Range/Units 04:23 Calcium 9.4 (8.6-10.8) mg/dL Pituitary panel 06/14/16 Range/Units 04:23 Sodium 137 (136-145) mEq/L Potassium 3.7 (3.5-4.5) mEq/L Chloride 102 (98-109) mEq/L Carbon Dioxide 23 (19-29) mEq/L BUN 18 (8-26) mg/dL Creatinine 1.00 (0.72-1.25) mg/dL Glucose 205 H (70-99) mg/dL Calcium 9.4 (8.6-10.8) mg/dL Adrenal panel 06/14/16 Range/Units 04:23 Sodium 137 (136-145) mEq/L Potassium 3.7 (3.5-4.5) mEq/L Chloride 102 (98-109) mEq/L Carbon Dioxide 23 (19-29) mEq/L BUN 18 (8-26) mg/dL Creatinine 1.00 (0.72-1.25) mg/dL Glucose 205 H (70-99) mg/dL Calcium 9.4 (8.6-10.8) mg/dL Consult Discharge Plan - Plan Referrals: Michael Trinidad MD [Primary Care Provider] - - Attending Attestation I examined this patient and my medical decision-making was reviewed with the INKER MACHINE/PA/Advanced Practice Nurse/Resident Physician. I agree with the documented findings, disposition and treatment plan as described except to the extent set forth below.
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
[2016-06-15] MEDS: Ipratropium/Albuterol Neb 3 ML IH SCH ×2 (04:06→10:28)
[2016-06-15] MEDS: MetroNIDAZOLE 500 MG/100 ML 500 MG/100 ML BAG IVPB SCH ×2 (05:01→08:53)
[2016-06-15] MEDS: *HR* Morphine 2 MG/ML SYRINGE IVP PRN ×2 (05:02→08:54)
[2016-06-15 05:14] LABS: Basophils % 0.1 %; Hematocrit 42.9 % (37.5-50.1); Hemoglobin 14.5 g/dL (12.9-16.9); Immature Granulocytes % 0.7 % (0-4); Lymphocytes # 0.9 K/mcL (0.6-4.6); Mean Corpuscular HGB Conc 33.8 g/dL (31.6-35.5); Mean Corpuscular Hemoglobin 30.6 pg (28.0-33.3); Mean Corpuscular Volume 90.5 fL (83.0-100.0); Monocytes # 1.5 K/mcL (0.0-1.3); Monocytes % 6.7 %; Neutrophils # 19.4 K/mcL (1.6-8.9); Platelet Count 157 K/mcL (140-400); Red Blood Count 4.74 M/mcL (4.19-5.50); Red Cell Distribution Width 13.2 % (11.5-14.5); Segmented Neutrophils % 88.5 %
[2016-06-15] MEDS: *HR* HYDROcodone/Acet 7.5/325 mg TABLET PO PRN (06:24)
[2016-06-15] MEDS: *HR* Heparin 5,000 UNIT/ML VIAL SQ SCH (06:25)
[2016-06-15 08:01] VITALS: BP 110/82
--- NOTE | 2016-06-15 08:31 | Discharge Summary ---
Date of Encounter: 06/15/16 Time of Encounter: 08:29 - Discharge Diagnosis (1) Multiple fractures of ribs of right side Priority: Primary Status: Acute Qualifiers: Encounter type: initial encounter Fracture type: closed Qualified Code(s) : S22.41XA - Multiple fractures of ribs, right side, initial encounter for closed fracture (2) Acute respiratory failure with hypoxia Priority: Secondary Status: Acute (3) Pneumothorax, closed, traumatic Priority: Primary Status: Acute Qualifiers: Encounter type: initial encounter Qualified Code(s): S27.0XXA - Traumatic pneumothorax, initial encounter (4) Scaphoid fracture, wrist, closed Priority: Secondary Status: Acute Qualifiers: Encounter type: initial encounter Scaphoid bone location: unspecified portion of scaphoid Fracture alignment: nondisplaced Laterality: right Qualified Code(s): S62.001A - Unspecified fracture of navicular [scaphoid] bone of right wrist, initial encounter for closed fracture (5) H/O mitral valve repair Priority: Secondary Status: Chronic (6) Fall Priority: Secondary Status: Acute Qualifiers: Encounter type: initial encounter Qualified Code(s): W19.XXXA - Unspecified fall, initial encounter (7) Sick sinus syndrome Priority: Secondary Status: Chronic - Discharge Medications Prescriptions: Clindamycin [Cleocin] 450 mg PO Q6HR #60 capsule HYDROcodone/Acet 7.5/325 mg [[place] 7.5-325 mg] 1 tab PO Q6HR PRN #20 tablet PRN Reason: Pain 4-6 Home Medications: Albuterol Sulfate [Albuterol Inhaler] 2 puff IH Q6HR PRN 06/12/16 [History] Carvedilol 12.5 mg PO BID 06/12/16 [History] Clindamycin [Cleocin] 450 mg PO Q6HR #60 capsule 06/15/16 [Rx] HYDROcodone/Acet 7.5/325 mg [[place] 7.5-325 mg] 1 tab PO Q6HR PRN #20 tablet [Rx] Allergies/Adverse Reactions: Allergies Oxycodone Allergy (Verified 04/10/16 08:40) Hives Date of admission: 06/13/16 15:15 Primary care physician: Michael Trinidad MD Consults: 06/12/16 12:03 Consult to Surgery [CONS] Routine Consulting Provider: [facility] Reason for Consult: Please evaluate for small right-sided pneumothorax. Call Completed: Yes 06/12/16 12:04 Consult to Orthopedic Surgery [CONS] Routine Consulting Provider: Orthopedics [facility] Reason for Consult: please evaluate for possible right scaphoid fracture. Call Completed: No 06/12/16 12:46 Consult to Nutrition [CONS] Routine Comment: Consulting Provider: NUTRITION Reason for Dietary Consult: MST Score Discharging clinician: Katie Ascencio Anticipated date of discharge: 06/15/16 - Patient Status Disposition: Home, Self-Care Condition: Good Functional capacity at discharge: independent ambulation Overall status at discharge: patient is progressing back to baseline - Discharge Instructions Instructions: Acute Respiratory Distress Syndrome (DC) Follow Up With: Michael Trinidad MD [Primary Care Provider] - (In one week) Additional Instructions: With Dr. Goodman in 1 week At [facility] - Diet and Activity Activity: increase activity as tolerated Diet: low fat, low cholesterol, low salt diet Hospital course: Mr. Perkins is a 56 year old male patient with history of sick sinus syndrome status post pacemaker, mitral valve repair, COPD and cephalic vein thrombosis who was admitted here after a fall resulting in a closed pneumothorax and multiple rib fractures involving his right side of the chest. Surgery was consulted and a chest tube was placed which showed significant improvement in the size of the pneumothorax with residual apical pneumothorax remaining that has not increased in size. Patient also had multiple rib fractures with severe pain and developed shortness of breath with acute respiratory failure as a result of this. He was placed on high flow nasal cannula but did not tolerate BiPAP. He was also placed on bronchodilator treatments. After his chest tube was removed, he has slowly improved and is now doing much better. He is no longer requiring O2 supplementation. His pain has also been well controlled. Patient also had a closed scaphoid fracture of the right wrist. This was evaluated by orthopedics in a thumb spica cast was placed. Patient will follow up with orthopedics in one week for further management. At this time patient is clinically stable for discharge and will be discharged home on pain medications. His chest x-ray here also showed development of his small infiltrate in his right upper lobe. Most likely could be aspiration pneumonitis /pneumonia related to his fall. She will complete a short course of treatment for this with clindamycin. Patient has an elevated WBC count likely due to use of steroids for treating his acute respiratory failure. His blood cultures have been negative. He had one episode of fever with temperature of 101 to his back. 2 days back. He has not had any further episodes of fever or any other signs of infection/sepsis. - Time Spent with Patient Total time spent providing and/or coordinating discharge services: Greater than 30 minutes (35 min) - Constitutional Vitals: Temp Pulse Resp BP Pulse Ox 98.1 F 88 18 110/82 92 06/15/16 07:57 06/15/16 07:57 06/15/16 07:57 06/15/16 07:57 06/15/16 07:57 General appearance: Present: cooperative, A&O X 3, severe distress, answers questions appropriately - Respiratory Respiratory exam: Present: chest wall tenderness (Right-sided), CTAB. Absent: accessory muscle use, rales, rhonchi, wheezes - GI/Abdominal GI/Abdominal exam: Present: normal bowel sounds, soft, no peritoneal signs. Absent: distended, tenderness - Extremities Exam Extremities exam: Present: warm, radial pulses palpable and symetrical. Absent : calf tenderness, cyanotic, pedal edema Additional comments: Right forearm and hand in thumb spica cast - Neurological Exam Neurological exam: Present: alert, oriented X3, no focal deficits. Absent: pronater drift, facial droop, speech deficit - Attending Attestation This document has been at least partially created by [employer] recognition technology by Dr. Ascencio. Errors in grammar, wording or other phrases may exist. If errors are found after the documentation is signed, they will be addressed individually in the addendum section of this document when appropriate.
[2016-06-15] MEDS: Levofloxacin 750 MG/150 ML 750 MG/150 ML BAG IVPB SCH (08:53)
== END 2016-06-15 10:58 | disposition home or self-care (01) | DRG 199 ==
LOC: EMEROO 08:19 → 3NENU 08:19 → SUATTDRO 11:27 → 3NENU 11:52 → 2NNU 06-13 20:34
PROVIDERS: ADMIT Internal Medicine Endocrinology, Diabetes & Metabolism; ATTEND Internal Medicine